=== PATIENT | female | born 1975 | race Caucasian/White ===

== ENCOUNTER 2017-05-24 17:40 | Emergency (ER) | payer OTHER ==
[~2017-05-24] VITALS: Ht 172.7 cm; Wt 140.0 kg
[2017-05-24 18:10] VITALS: BP 184/111
== END 2017-05-24 18:54 | disposition home or self-care (01) ==
LOC: ED 18:48
DX: K08.89 Other specified disorders of teeth and supporting structures (principal); I10 Essential (primary) hypertension
CPT/HCPCS: 99283

== ENCOUNTER 2018-10-18 10:56 | Emergency (ER) | payer MEDICARE ==
[~2018-10-18] VITALS: Ht 172.7 cm; Wt 131.4 kg
[2018-10-18] MEDS ORDERED: KETOROLAC 30 MG/1 ML IM ONE (11:30)
[2018-10-18] MEDS ORDERED: ONDANSETRON ODT 4 MG PO ONE (11:30)
[2018-10-18] MEDS ORDERED: ONDANSETRON ODT 4 MG ONE (11:51)
[2018-10-18] MEDS ORDERED: KETOROLAC 30 MG/1 ML ONE (11:51)
[2018-10-18 12:45] VITALS: BP 148/92
== END 2018-10-18 12:47 | disposition home or self-care (01) ==
LOC: ED 12:33
DX: G89.29 Other chronic pain (principal); M25.562 Pain in left knee; B34.9 Viral infection, unspecified; F17.200 Nicotine dependence, unspecified, uncomplicated
CPT/HCPCS: 71046; 73564; 96372; 99283; J1885; Q0162

== ENCOUNTER 2019-01-14 19:44 | Emergency (ER) | payer MEDICARE ==
[~2019-01-14] VITALS: Ht 172.7 cm; Wt 130.8 kg
[2019-01-14] MEDS ORDERED: ACETAMINOPHEN 325 MG TABLET ONE (20:11)
[2019-01-14] MEDS ORDERED: GABA300C10 PO (20:16)
--- NOTE | 2019-01-14 20:25 | NUR ---
PT REPORTS A COUGH AND BODY ACHES. NO ACUTE DISTRESS NOTED. VS STABLE. LABS DRAWN WILL CONTINUE TO MONITOR.
[2019-01-14] MEDS ORDERED: ACETAMINOPHEN 325 MG TABLET PO ONE (20:30)
[2019-01-14 20:39] LABS: ALANINE AMINOTRANSFERASE 26 U/L (12-78); ALBUMIN 3.8 g/dL (3.4-5.0); ANION GAP 7 mmol/L (5-15); CALCIUM 8.8 mg/dL (8.5-10.1); CHLORIDE 105 mmol/L (98-107); CREATININE 0.91 mg/dL (0.55-1.02)
[2019-01-14 20:41] LABS: ALKALINE PHOSPHATASE 91 U/L (45-117); BILIRUBIN,TOTAL 0.4 mg/dL (0.2-1.0); TOTAL PROTEIN 8.4 g/dL (6.4-8.2)
[2019-01-14 20:45] LABS: MEAN CORPUSCULAR HEMOGLOBIN 23.4 pg (27.0-34.8); MEAN CORPUSCULAR HGB CONC 31.5 g/dL (32.4-35.8); MEAN CORPUSCULAR VOLUME 74.1 fL (80-100); MEAN PLATELET VOLUME 9.4 fL (7.4-10.4); PLATELET COUNT 285 x10^3/uL (130-400); RED CELL DISTRIBUTION WIDTH 15.8 % (9.6-15.2)
[2019-01-14 20:58] LABS: ANISOCYTOSIS 1+; BASOPHILS # (AUTO) 0.08 x10^3/uL (0-0.1); BASOPHILS % (AUTO) 1 % (0-1); EOSINOPHILS # (AUTO) 0.21 x10^3/uL (0-0.4); EOSINOPHILS % (AUTO) 2 % (1-7); HYPOCHROMIA 1+; LYMPHOCYTES # (AUTO) 3.47 x10^3/uL (1-3.4); LYMPHOCYTES % (AUTO) 26 % (22-44); MD MORPH REVIEW ONLY; MICROCYTOSIS 1+; MONOCYTES # (AUTO) 0.82 x10^3/uL (0.2-0.8); MONOCYTES % (AUTO) 6 % (2-9); NEUTROPHILS % (AUTO) 66 % (42-75)
[2019-01-14 21:01] LABS: <PLATELET ESTIMATE> ADEQUATE; <PLT MORPHOLOGY> NORMAL PLT MORPH
[2019-01-14 21:35] VITALS: BP 152/89
== END 2019-01-14 21:37 | disposition home or self-care (01) ==
LOC: ED 21:31
DX: J20.9 Acute bronchitis, unspecified (principal); B96.89 Other specified bacterial agents as the cause of diseases classified elsewhere; J45.909 Unspecified asthma, uncomplicated; I10 Essential (primary) hypertension; E11.9 Type 2 diabetes mellitus without complications; F17.200 Nicotine dependence, unspecified, uncomplicated; Z90.49 Acquired absence of other specified parts of digestive tract; Z90.710 Acquired absence of both cervix and uterus
CPT/HCPCS: 36415; 71046; 80053; 85025; 93005; 99284

== ENCOUNTER 2019-08-24 13:26 | Outpatient (CLI) | payer MEDICARE ==
[~2019-08-24 13:26] MED LIST: GABA300C10 PO
== END 2019-08-24 23:59 | disposition home or self-care (01) ==
LOC: LAB 13:26 → RAD 23:59
PROVIDERS: ATTEND Radiology Diagnostic Radiology
DX: M16.12 Unilateral primary osteoarthritis, left hip (principal); Z98.890 Other specified postprocedural states
CPT/HCPCS: 72170; 73523

== ENCOUNTER 2019-09-24 21:45 | Emergency (ER) | payer MEDICARE ==
[~2019-09-24] VITALS: Ht 172.7 cm; Wt 125.1 kg
--- NOTE | 2019-09-24 22:01 | NUR ---
44Y F STS "I THINK MY HERNIA IS POPPING OUT. I COUGH AND NOW IT'S STICKING OUT." PT REPORTS MESTH " COVERING WHOLE STOMACH." PT CONNECTED TO ALL MONITORING CALL LIGHT IN REACH. MIRIAN BRIZUELA
[2019-09-24] MEDS ORDERED: MORPHINE SULFATE 4 MG/ML, 1ML ONE ×2 (22:25→23:54)
[2019-09-24] MEDS ORDERED: ONDANSETRON 2MG/ML, 2ML ONE (22:25)
[2019-09-24] MEDS ORDERED: SODIUM CHLORIDE 0.9% 1,000ML IVBOLUS ONE (22:30)
[2019-09-24] MEDS ORDERED: ONDANSETRON 2MG/ML, 2ML IVPush ONE (22:30)
[2019-09-24 22:35] LABS: BASOPHILS # (AUTO) 0.01 x10^3/uL (0-0.1); BASOPHILS % (AUTO) 0 % (0-1); EOSINOPHILS # (AUTO) 0.02 x10^3/uL (0-0.4); EOSINOPHILS % (AUTO) 0 % (1-7); LYMPHOCYTES # (AUTO) 0.84 x10^3/uL (1-3.4); LYMPHOCYTES % (AUTO) 12 % (22-44); MD NO; MEAN CORPUSCULAR HEMOGLOBIN 23.6 pg (27.0-34.8); MEAN CORPUSCULAR HGB CONC 31.3 g/dL (32.4-35.8); MEAN CORPUSCULAR VOLUME 75.6 fL (80-100); MEAN PLATELET VOLUME 9.3 fL (7.4-10.4); MONOCYTES # (AUTO) 0.58 x10^3/uL (0.2-0.8); MONOCYTES % (AUTO) 8 % (2-9); NEUTROPHILS # (AUTO) 5.84 x10^3/uL (1.8-6.8); NEUTROPHILS % (AUTO) 80 % (42-75); PLATELET COUNT 231 x10^3/uL (130-400); RED BLOOD COUNT 5.92 x10^6/uL (3.82-5.3)
[2019-09-24 22:41] LABS: RAPID INFLUENZA A Negative (Negative); RAPID INFLUENZA B Negative (Negative)
[2019-09-24 22:42] LABS: ALANINE AMINOTRANSFERASE 34 U/L (12-78); ALBUMIN 3.6 g/dL (3.4-5.0); ANION GAP 7 mmol/L (5-15); CALCIUM 8.9 mg/dL (8.5-10.1); CHLORIDE 105 mmol/L (98-107); CREATININE 0.91 mg/dL (0.55-1.02)
[2019-09-24] MEDS: MORPHINE SULFATE 4 MG/ML, 1ML IVPush PRN ×2 (22:43→23:57)
[2019-09-24 22:44] LABS: ALKALINE PHOSPHATASE 76 U/L (45-117); BILIRUBIN,TOTAL 0.2 mg/dL (0.2-1.0); TOTAL PROTEIN 8.1 g/dL (6.4-8.2)
--- NOTE | 2019-09-24 22:46 | NUR ---
IV STARTED, PT MEDICATED PER MAR.
--- NOTE | 2019-09-24 22:48 | NUR ---
MD AT BEDSIDE TO ASSESS PT
[2019-09-24] MEDS ORDERED: SODIUM CHLORIDE FLUSH 10ML SYR IVF ONE (23:00)
--- NOTE | 2019-09-24 23:31 | NUR ---
CC UA COLLECTED AND SENT TO THE LAB.
[2019-09-24] MEDS ORDERED: OMNIPAQUE 350 MG/ML, 100ML BOTTLE ONE (23:38)
[2019-09-24 23:50] LABS: CULTURE INDICATED? NO; MICROSCOPIC AUTO
--- NOTE | 2019-09-24 23:58 | NUR ---
THE PT IS REQ MORE PAIN MEDS. 2ND DOSE OF MORPHINE GIVEN IV.
--- NOTE | 2019-09-25 00:08 | NUR ---
ROUNDS COMPLETED. RESTING WELL. S.O. AT THE BEDSIDE, CALL LIGHT IN REACH.
[2019-09-25 00:09] VITALS: BP 159/69
--- NOTE | 2019-09-25 00:10 | NUR ---
SPO 2 REMAINS LOW ON RA AT 86-88 %. WILL CONT W/ O2 PER NC.
--- NOTE | 2019-09-25 00:15 | NUR ---
LAST ORAL INTAKE 09/24/19 AT 1930.
[2019-09-25] MEDS ORDERED: FLUO40CA9 PO (00:17)
[2019-09-25] MEDS ORDERED: LOSA25TA25 PO (00:17)
[2019-09-25] MEDS ORDERED: methylPREDNISolone SOD SUCC 125 MG/2 ML IVPush STA (00:36)
[2019-09-25] MEDS ORDERED: methylPREDNISolone SOD SUCC 125 MG/2 ML ONE (00:40)
[2019-09-25] MEDS ORDERED: KETOROLAC 30 MG/1 ML ONE (00:47)
[2019-09-25] MEDS ORDERED: ALBUTEROL/IPRATROPIUM 2.5MG/0.5MG, 3 ML ONE (00:53)
[2019-09-25] MEDS ORDERED: KETOROLAC 30 MG/1 ML IVPush ONE (01:00)
[2019-09-25] MEDS ORDERED: ALBUTEROL/IPRATROPIUM 2.5MG/0.5MG, 3 ML NPPB SCH (01:00)
--- NOTE | 2019-09-25 01:16 | NUR ---
D/C INST REVIEWED W/ THE PT TO INCLUDE F/U OP W/ PCP IN THE AM. RETURN IF SX DO NOT IMPROVE OR NEEDED. THE PT VERB UNDERSTANDING AND DENIES QUESTIONS.
--- NOTE | 2019-09-25 01:18 | NUR ---
THE PT VERB THAT SHE DID FEEL BETTER AFTER THE BX TX.
== END 2019-09-25 01:20 | disposition home or self-care (01) ==
LOC: ED 09-25 01:18
DX: K43.9 Ventral hernia without obstruction or gangrene (principal); J06.9 Acute upper respiratory infection, unspecified; I10 Essential (primary) hypertension; M19.90 Unspecified osteoarthritis, unspecified site; Z90.49 Acquired absence of other specified parts of digestive tract; Z90.710 Acquired absence of both cervix and uterus; F17.210 Nicotine dependence, cigarettes, uncomplicated
CPT/HCPCS: 36415; 71045; 74177; 80053; 81001; 83690; 85025; 87400; 94640; 96374; 96375; 96376; 99284; J1885; J2270; J2405; J2930; J7030; J7620; Q9967

== ENCOUNTER 2019-11-22 11:22 | Emergency (ER) | payer MEDICARE ==
[~2019-11-22] VITALS: Ht 172.7 cm; Wt 123.8 kg
[~2019-11-22 11:22] MED LIST changes: +FLUO40CA9 PO; +LOSA25TA25 PO
[2019-11-22 11:35] VITALS: BP 146/102
--- NOTE | 2019-11-22 13:21 | NUR ---
Pt to rm 2 from [facility]
--- NOTE | 2019-11-22 13:38 | NUR ---
PT REPORTS FEELING A POP IN HER RIGHT HIP WHILE WALKING, IT HURT A BIT AT THIS TIME AND HAS GOTTON MUCH WORSE, SHE STATES SHE CAN HARDLY BARE WEIGHT ON IT. THIS POP WAS 4 DAYS AGO. CMS INTACT, NO OBVIOUS DEFORMITY NOTED.
[2019-11-22] MEDS ORDERED: OXYcodone/APAP 5/325MG TABLET ONE (13:52)
[2019-11-22] MEDS ORDERED: OXYcodone/APAP 5/325MG TABLET PO ONE (14:00)
--- NOTE | 2019-11-22 14:27 | NUR ---
PT TO IMAGING
== END 2019-11-22 17:09 | disposition home or self-care (01) ==
LOC: ED 16:34
DX: M25.551 Pain in right hip (principal); I10 Essential (primary) hypertension; E11.40 Type 2 diabetes mellitus with diabetic neuropathy, unspecified; F17.200 Nicotine dependence, unspecified, uncomplicated; Z90.49 Acquired absence of other specified parts of digestive tract; Z90.710 Acquired absence of both cervix and uterus
CPT/HCPCS: 72192; 99283; 99284